=== PATIENT | male | born 1960 | race Asian ===

== ENCOUNTER 2021-06-25 06:03 | Observation (INO) ==
[~2021-06-25 06:03] MED LIST: Buffered Lidocaine 1% SYRIN 1 ml INTRADERM ONE; Lactated Ringers 1000 ml BAG 1,000 ML IV SCH
[2021-06-25] MEDS ORDERED: cefTRIAXone 2 GM ADDV.VIAL ONE (06:13)
[2021-06-25] MEDS ORDERED: Rocuronium 50 mg VIAL 10 mg/ml 5 ml VIAL (50 mg) ONE (06:54)
[2021-06-25] MEDS ORDERED: Propofol 10 MG/ML 20 ML BTL ONE (06:54)
[2021-06-25] MEDS ORDERED: Dexamethasone IV 4 MG/ML VIAL 1 ml VIAL ONE (06:54)
[2021-06-25] MEDS ORDERED: Midazolam 2 mg/2 ml VIAL 1 mg/ml 2 ml VIAL (2 mg) ONE (06:54)
[2021-06-25] MEDS ORDERED: fentaNYL 100 mcg/2 ml 50 MCG/ML VIAL ONE ×2 (06:54→07:08)
[2021-06-25] MEDS ORDERED: Lidocaine 2% PF 5 ML VIAL ONE (06:54)
[2021-06-25] MEDS ORDERED: Ondansetron 4 mg VIAL 2 MG/ML 2 ml VIAL ONE (06:54)
[2021-06-25] MEDS ORDERED: Gentamicin ADULT 160 MG in NS 0.9% 100 ml BAG 100 ML IVPB ONE (07:00)
[2021-06-25] MEDS ORDERED: Morphine PF AMP (0.5MG/ML) 5 MG/10 ML AMP ONE (07:08)
[2021-06-25] MEDS ORDERED: Phenylephrine IV 10 MG/ML 1 ml VIAL ONE (07:19)
[2021-06-25] MEDS ORDERED: Furosemide 20 mg/2 ml IV VIAL ONE (07:55)
[2021-06-25] MEDS ORDERED: Glycopyrrolate IV 0.2 MG/ML 1 ML VIAL ONE ×2 (08:02→08:13)
[2021-06-25] MEDS ORDERED: Naloxone 0.4 mg VIAL 0.4 mg/ml 1 ml VIAL IV PRN (09:20)
[2021-06-25] MEDS ORDERED: diPHENhydraMINE IV 50 MG/ML 1 ml VIAL (BENADRYL) IV PRN (09:20)
[2021-06-25] MEDS ORDERED: DiMENhydriNATE IV 50 mg/ml 1 ml VIAL IV PUSH PRN (09:20)
[2021-06-25] MEDS ORDERED: Acetaminophen IV 1 GM/100ML 100 ML IV ONE ×2 (09:20→09:25)
[2021-06-25] MEDS ORDERED: HYDROmorphone 1 MG/1 ML SYRINGE IV PRN (09:20)
[2021-06-25 11:29] LABS: Calcium 8.5 mg/dL (8.6-10.3)
[2021-06-25] MEDS: Lactated Ringers 1000 ml BAG 1,000 ML IV SCH ×2 (11:40→18:07)
[2021-06-26] MEDS: Lactated Ringers 1000 ml BAG 1,000 ML IV SCH (03:30)
[2021-06-26] MEDS ORDERED: Flu vaccine *QUAD* 2021-22* 0.5 ML SYRINGE IM ONE (09:00)
[2021-06-26 12:19] VITALS: BP 119/70
== END 2021-06-26 13:50 | disposition home or self-care (01) ==
LOC: SSU 06:03 → OR 06:03
PROVIDERS: ADMIT Urology; ATTEND Urology